=== PATIENT | male | born 1960 | race African-American/Black ===

== ENCOUNTER 2016-03-28 13:48 | Day surgery (SDC) | payer OTHER ==
[2016-03-28] MEDS ORDERED: methylPREDNISolone NA SUCC 125 MG/2 ML VIAL IVPB ONE (14:45)
[2016-03-28] MEDS ORDERED: diphenhydrAMINE HCL 25 MG CAPSULE (FP) PO ONE (15:10)
[2016-03-28] MEDS ORDERED: ACETAMINOPHEN 500 MG TABLET (FP) PO ONE (15:10)
[2016-03-28] MEDS ORDERED: RITUXIMAB 1,000 MG in DEXTROSE 5%-WATER - 400 ML IVPB ONE (16:00)
[2016-03-28 17:07] VITALS: BMI 31.4
[2016-03-28 18:45] VITALS: BP 136/60; PULSE 85; TEMP 98
== END 2016-03-28 19:15 | disposition home or self-care (01) ==
LOC: JCHEMO 13:48 → J7W 13:49 → JCHEMO 19:15
PROVIDERS: ATTEND Internal Medicine Rheumatology
PROC: 3E03305 Introduction of Other Antineoplastic into Peripheral Vein, Percutaneous Approach (ICD-10-PCS; principal; 2016-03-28)
PROC: 3E0337Z Introduction of Electrolytic and Water Balance Substance into Peripheral Vein, Percutaneous Approach (ICD-10-PCS; 2016-03-28)
DX: D86.81 Sarcoid meningitis (principal); G95.89 Other specified diseases of spinal cord
CPT/HCPCS: 96368; 96413; 96415; J7030; J9310

== ENCOUNTER 2016-04-08 08:23 | Day surgery (SDC) | payer OTHER ==
[~2016-04-08 08:23] MED LIST: ACETAMINOPHEN 500 MG TABLET (FP) PO ONE; METHYLPREDNISOLONE NA SUCC 100 MG in SODIUM CHLORIDE 50 ML IVPB ONE; diphenhydrAMINE HCL 25 MG CAPSULE (FP) PO ONE
[2016-04-08] MEDS ORDERED: RITUXIMAB 1,000 MG in DEXTROSE 5%-WATER - 400 ML IVPB ONE ×2 (08:30→11:45)
[2016-04-08 09:10] VITALS: BMI 29.7
[2016-04-08 10:02] LABS: EOSINOPHIL 0.4 % (0-4.5); MCH 28.8 pg (25.7-33.7); MCHC 33.1 g/dl (32.0-35.9); MEAN CELL VOLUME 87.2 fl (80-96); NEUTROPHILS 80.1 % (42.8-82.8); PLATELET COUNT 241 K/MM3 (134-434); RDW 13.6 % (11.9-15.9); WHITE BLOOD COUNT 5.7 K/mm3 (4.0-10.0)
[2016-04-08 10:30] LABS: ALBUMIN 3.7 g/dl (3.4-5.0); BILIRUBIN,TOTAL 0.3 mg/dL (0.2-1.0); CALCIUM 9.2 mg/dL (8.5-10.1); CREATININE 1.5 mg/dL (0.7-1.3); MAGNESIUM 2.2 mg/dL (1.8-2.4); TOT PROT 7.2 g/dl (6.4-8.2)
[2016-04-08] MEDS ORDERED: ACETAMINOPHEN 500 MG TABLET (FP) PO ONE (11:15)
[2016-04-08] MEDS ORDERED: diphenhydrAMINE HCL 25 MG CAPSULE (FP) PO ONE (11:15)
[2016-04-08 13:58] VITALS: BP 96/63; PULSE 75; TEMP 98.3
== END 2016-04-08 18:43 | disposition home or self-care (01) ==
LOC: J7W 08:23 → JCHEMO 08:23
PROVIDERS: ATTEND Internal Medicine Rheumatology
DX: Z51.11 Encounter for antineoplastic chemotherapy (principal); D86.81 Sarcoid meningitis; G95.89 Other specified diseases of spinal cord
CPT/HCPCS: 96367; 96413; 96415; J9310; 36415; 80053; 83735; 84134; 85025